=== PATIENT | male | born 1955 | race Caucasian/White ===

== ENCOUNTER 2017-08-18 18:16 | Emergency (ER) | payer BC ==
--- NOTE | 2017-08-18 18:22 | PDOC ---
Rapid Medical Evaluation Time Seen by Provider: 08/18/17 18:17 Medical Evaluation: Allergies Allergy/AdvReac Type Severity Reaction Status Date / Time Penicillins Allergy Verified 01/13/13 10:15 I have performed a brief in-person evaluation of this patient. The patient presents with a chief complaint of: sharp pain in right side of head radiating to right shoulder about 1 hour ago. The sharp pain has subsided. He now has a dull ache behind his right eye. No vision changes but feels pressure behind right eye. Patient took a baby aspirin on the way to the ER. Pertinent physical exam findings: none. No facial drooping. No slurred speech. No unilateral weakness. I have ordered the following: labs, EKG, head CT The patient will proceed to the ED for further evaluation. Discharge Disposition - Diagnosis Eye pressure - Referrals - Patient Instructions - Post Discharge Activity
[2017-08-18 18:30] VITALS: BP 158/99; PULSE 93; TEMP 97.8; BMI 31.4
--- NOTE | 2017-08-18 19:39 | PDOC ---
History of Present Illness - General Chief Complaint: Pain, Acute Stated Complaint: HEAD PAIN Time Seen by Provider: 08/18/17 18:17 History Source: Patient Exam Limitations: No Limitations - History of Present Illness Initial Comments: 08/18/17 19:34 62 YOM with h/o EtOH use (20-30 drinks/week), HLD, and prior cigarette smoking ( quit in 2004) who was drinking 2-3 beers when he had a fleeting sharp 9/10 non- radiating twinge of pain in the right anterior shoulder at 5:30pm today, followed by a gradual onset of pressure behind his right eye which has been improving since arrival to the ED. He notes having taken a full-dose ASA for the symptoms but no additional medications. He denies any vision change, numbness, tingling, focal weakness, difficulty walking or balancing, chest pain , SOB, or other symptoms. Past History - Past Medical History Allergies/Adverse Reactions: Allergies Allergy/AdvReac Type Severity Reaction Status Date / Time Penicillins Allergy Verified 01/13/13 10:15 Home Medications: Ambulatory Orders Cholecalciferol (Vitamin D3) [Vitamin D] 1,000 unit PO DAILY 01/13/13 Simvastatin [Zocor -] 40 mg PO DAILY 01/13/13 Anemia: No Asthma: No Cancer: No Cardiac Disorders: No CVA: No COPD: No CHF: No DVT: No Dementia: No Diabetes: No GI Disorders: Yes (DIVERTICULOSIS) Disorders: No HTN: No Hypercholesterolemia: Yes Liver Disease: No Thyroid Disease: No - Surgical History Abdominal Surgery: No Appendectomy: No Cardiac Surgery: No Cholecystectomy: No Lung Surgery: No Neurologic Surgery: No Orthopedic Surgery: No - Suicide/Smoking/Psychosocial Hx Smoking History: Former smoker Have you smoked in the past 12 months: No If you are a former smoker, when did you quit?: 2004 Information on smoking cessation initiated: No Hx Alcohol Use: No Drug/Substance Use Hx: No Substance Use Type: None Hx Substance Use Treatment: No Review of Systems - Review of Systems Able to Perform ROS?: Yes Constitutional: Yes: Diaphoresis (resolved). No: Chills, Fever, Unexplained wgt Loss HEENTM: Yes: Other (right eye pain). No: Recent change in vision, Nose Congestion, Throat Pain Respiratory: No: Cough, Shortness of Breath Cardiac (ROS): No: Chest Pain, Palpitations ABD/GI: No: Constipated, Diarrhea, Nausea, Vomiting : No: Burning, Dysuria Musculoskeletal: Yes: Other (right shoulder pain (resolved)). No: Back Pain, Neck Pain Integumentary: No: Bruising, Rash Neurological: No: Headache, Numbness, Tingling, Weakness, Dizziness Endocrine: No: Unexplained Weight Gain, Unexplained Weight Loss *Physical Exam - Vital Signs Last Vital Signs Temp Pulse Resp BP Pulse Ox 97.8 F 93 H 20 158/99 97 08/18/17 18:21 08/18/17 18:21 08/18/17 18:21 08/18/17 18:21 08/18/17 18:21 - Physical Exam General Appearance: Yes: Nourished, Appropriately Dressed, Other (well appearing nontoxic comfortable adult male answering questions appropriately). No: Apparent Distress HEENT: positive: EOMI, INEZ, Normal ENT Inspection, Normal Voice, Hearing Grossly Normal, Other (visual acuity grossly normal and equal bilaterally). negative: Scleral Icterus (R), Scleral Icterus (L), Nasal Congestion Neck: positive: Trachea midline, Supple. negative: Tender, Rigid Respiratory/Chest: positive: Lungs Clear, Normal Breath Sounds. negative: Chest Tender, Respiratory Distress, Crackles, Rhonchi, Stridor, Wheezing Cardiovascular: positive: Regular Rhythm, Regular Rate, S1, S2. negative: Edema , JVD, Murmur Gastrointestinal/Abdominal: positive: Normal Bowel Sounds, Soft. negative: Tender, Organomegaly, Pulsatile Mass, Guarding Musculoskeletal: positive: Normal Inspection. negative: Decreased Range of Motion, Vertebral Tenderness Extremity: positive: Normal Capillary Refill, Normal Inspection, Normal Range of Motion, Other (right shoulder nontender, normal ROM). negative: Tender, Cyanosis Integumentary: positive: Normal Color, Dry, Warm. negative: Erythema, Rash, Bruising Neurologic: positive: back tender fourdrinier II-XII NML intact, Fully Oriented, Alert, Normal Mood/ Affect, Normal Response, Motor Strength 5/5, Finger to Nose (normal). negative : EOM Palsy, Facial Droop, Numbness, Sensory Deficit, Confused, Disoriented Heart Score/ECG Review #1 08/18/17 22:14 SR rate 76 with left axis deviation, incomplete RBBB, LAFB, poor R wave progression, otherwise no ischemic changes. ED Treatment Course - LABORATORY CBC & Chemistry Diagram: 08/18/17 20:40 08/18/17 22:05 - RADIOLOGY Radiology Studies Ordered: Category Date Time Status CHEST PA & LAT [RAD] Stat Radiology 08/18/17 19:33 Ordered Medical Decision Making - Medical Decision Making 08/18/17 22:15 Adult male Pt p/w headache, no reported mechanism for injury, no new red flag symptoms (see HPI). FINNEY not worse on awakening in the AM, no B symptoms, trauma, fever, vision loss, syncope, n/t/w focally, sudden onset, etc. Initial Vital Signs Temp Pulse Resp BP Pulse Ox 97.8 F 93 H 20 158/99 97 08/18/17 18:21 08/18/17 18:21 08/18/17 18:21 08/18/17 18:21 08/18/17 18:21 Exam: well appearing, nontoxic, no distress, normal heart/lung/abdominal exams, normal neuro exam. DDX IBNLT primary FINNEY syndrome (tension/cluster/migraine/other incl. primary cough FINNEY, exertional FINNEY, postcoital FINNEY), trigeminal neuralgia, zoster, SAH ( chris. sudden onset), subdural or epidural hematoma (chris. after trauma), ruptured/ acutely expanded aneurysm, encephalitis, meningitis, glaucoma, atypical PNA, idiopathic intracranial hypertension (uncommon in males), GCA (uncommon <50 yo) , mass lesion, brain metastasis (chris. known CA patients and/or FINNEY with increasing severity/frequency), brain abscess (chris. immunocompromised patients) , DKA, CO poisoning, etc. W/U ordered: TX ordered: None (patient states pain improved). EKG: Reviewed; results as noted in ECG Review section. CXR: Head CT: Labs: Reassessment: Repeat VS: ADMIT The Pt is unsafe for discharge at this time. They require further hospital observation, workup, and treatment. Microblog sent to [facility] for admission. Spoke with [facility], in agreement Pt to be admitted to Decision to Admit order placed to covering attending DISCHARGE The Pt has gotten significant relief of symptoms with ED medications. Workup is not concerning for emergency-level pathology at this time. The Pt is appropriate for discharge home w/ close outpatient f/u. He is comfortable with this plan. He will take Motrin and/or Tylenol for pain. He will follow up with his regular doctor in the next 1-3 days. Specific return precautions are discussed and he will come back to the ER if necessary. *DC/Admit/Observation/Transfer Diagnosis at time of Disposition: Eye pressure Shoulder pain, right Qualifiers: Chronicity: acute Qualified Code(s): M25.511 - Pain in right shoulder - Discharge Dispostion Condition at time of disposition: Stable Decision to Admit order: No - Referrals Referrals: Diana Suárez MD [Primary Care Provider] - - Patient Instructions Additional Instructions: You were seen in the ER for pain/pressure behind your right eye which we believe is a headache. We did an exam, and we did not find any signs of an emergency. We did laboratory work, a chest X-ray, an electrocardiogram, and a head CT and did not find any abnormal findings which could explain your symptoms. Your pain improved with the medications we gave you here in the ER. After our assessment, we believe you are not having a medical emergency and you are safe to go home. Please take [id number] pain relievers like naproxen ( Aleve) or ibuprofen (Motrin) or Tylenol. Stay very well-hydrated, and try avoiding foods containing the chemicals tyramine and nitrates (such as chocolate , cheese, and processed meats) because these are associated with migraine-type headaches. Follow up with your regular doctor(s) in the next 1-3 days. Call their clinic [facility], tell them you were seen in the ER, and tell them you need an appointment. Please come back to the ER at any time, 24 hours a day, for any new or worsening symptoms, like worsening headache, new numbness/tingling, fainting, dizziness, new vision changes, high fever, or other symptoms. If you are having symptoms that make it unsafe to drive, please call 911. - Post Discharge Activity
--- NOTE | 2017-08-18 19:56 | PDOC ---
Attending Attestation - HPI HPI: 08/18/17 20:39 The patient is a 62 year old male with past medical history of hypercholesterolemia who presents to the emergency department with right shoulder pain for 3 hours. The patient states that he was drinking a few beers at approximately 17:30 when he began to experience sudden onset, fleeting right shoulder pain that he described as 9/10 in severity and radiating superiorly. The patient reports that his shoulder pain completely resolved but that he began to experience a painful pressure behind his right eye. He reports that his right eye pressure has been progressively improving after taking a dose of aspirin. The patient denies chest pain, shortness of breath, and dizziness. He denies vision changes, numbness, and weakness. - Physicial Exam PE: 08/18/17 20:40 GENERAL: Well-appearing, well-nourished. No apparent distress. HEENT: Normocephalic, atraumatic. PERRL, EOM intact. CARDIOVASCULAR: Normal S1, S2. Regular rate and rhythm. PULMONARY: Clear to auscultation bilaterally. ABDOMEN: Soft, non-distended, non-tender. EXTREMITIES: Normal ROM in all four extremities. No gross deformities. SKIN: Warm, dry. No rash NEUROLOGICAL: No focal neurological deficits. - Medical Decision Making 08/18/17 20:40 Documentation prepared by Zeeshan Johnston, acting as medical office supervisor for Garrison Meza DO. <Zeeshan Johnston - Last Filed: 08/18/17 20:39> - Resident Resident Name: Yesenia Salazar - ED Attending Attestation I have performed the following: I have examined & evaluated the patient, The case was reviewed & discussed with the resident, I agree w/resident's findings & plan, Exceptions are as noted - Medical Decision Making 08/18/17 23:38 Pt was treated and released <Garrison Meza - Last Filed: 08/18/17 23:38>
[2017-08-18 21:14] LABS: BASO % 1.3 % (0-2.0); EOS % 4.5 % (0-4.5); HEMATOCRIT 43.1 % (35.4-49); HEMOGLOBIN 14.5 GM/dL (11.7-16.9); LYMPH % 21.9 % (8-40); MCH 29.4 pg (25.7-33.7); MCHC 33.7 g/dl (32.0-35.9); MEAN CELL VOLUME 87.2 fl (80-96); MEAN PLT VOLUME 8.2 fl (7.5-11.1); MONO % 10.3 % (3.8-10.2); PLATELET COUNT 230 K/MM3 (134-434); RBC 4.94 M/mm3 (4.00-5.60); RDW 14.4 % (11.9-15.9); WHITE BLOOD COUNT 8.7 K/mm3 (4.0-10.0)
[2017-08-18 22:31] LABS: PLATELET ESTIMATE ADEQUATE
[2017-08-18 22:47] LABS: ALBUMIN 3.9 g/dl (3.4-5.0); ANION GAP 8 (8-16); BLOOD UREA NITROGEN 25 mg/dL (7-18); CALCIUM 8.2 mg/dL (8.5-10.1); CHLORIDE 108 mmol/L (98-107); CO2 24 mmol/L (21-32); CREATININE 1.1 mg/dL (0.7-1.3); GLUCOSE,RANDOM 83 mg/dL (74-106); POTASSIUM 3.8 mmol/L (3.5-5.1); SGOT/AST 60 U/L (15-37); SGPT/ALT 124 U/L (12-78); SODIUM 140 mmol/L (136-145)
[2017-08-18 22:50] LABS: ALK PHOS 76 U/L (45-117); BILIRUBIN,TOTAL 0.5 mg/dL (0.2-1.0)
--- NOTE | 2017-08-19 16:20 | EKG ---
Test Reason : Blood Pressure : / mmHG Vent. Rate : 076 BPM Atrial Rate : 076 BPM P-R Int : 140 ms QRS Dur : 104 ms QT Int : 396 ms P-R-T Axes : 035 -60 022 degrees QTc Int : 445 ms NORMAL SINUS RHYTHM WITH SINUS ARRHYTHMIA INCOMPLETE RIGHT BUNDLE BRANCH BLOCK LEFT ANTERIOR FASCICULAR BLOCK MODERATE VOLTAGE CRITERIA FOR LVH, MAY BE NORMAL VARIANT ABNORMAL ECG NO PREVIOUS ECGS AVAILABLE Confirmed by BARON SMALL, YANIV ([id number]) on 08/19/2017 4:19:48 PM Referred By: Confirmed By:YANIV DRAPER MD
== END 2017-08-19 00:16 | disposition home or self-care (01) ==
LOC: JER 18:16
DX: H57.8 Other specified disorders of eye and adnexa (principal); M25.511 Pain in right shoulder; E78.00 Pure hypercholesterolemia, unspecified; F10.10 Alcohol abuse, uncomplicated; Z87.891 Personal history of nicotine dependence
CPT/HCPCS: 36415; 70450-TC; 71046-TC-FY; 80053; 84484; 85025; 93005; 93010; 99281-25

== ENCOUNTER 2020-01-31 05:29 | Day surgery (SDC) | payer BC ==
[2020-01-30 12:27] VITALS: BMI 31.2
[2020-01-31 12:18] VITALS: TEMP 97.9
[2020-01-31 13:08] VITALS: BP 124/81; PULSE 64
== END 2020-01-31 13:16 | disposition home or self-care (01) ==
LOC: JASU-ENDO 05:29
PROVIDERS: ATTEND Internal Medicine Gastroenterology
PROC: 0DBH8ZX Excision of Cecum, Via Natural or Artificial Opening Endoscopic, Diagnostic (ICD-10-PCS; 2020-01-31)
PROC: 0DBN8ZX Excision of Sigmoid Colon, Via Natural or Artificial Opening Endoscopic, Diagnostic (ICD-10-PCS; 2020-01-31)
PROC: 0DB98ZX Excision of Duodenum, Via Natural or Artificial Opening Endoscopic, Diagnostic (ICD-10-PCS; 2020-01-31)
PROC: 0DB68ZX Excision of Stomach, Via Natural or Artificial Opening Endoscopic, Diagnostic (ICD-10-PCS; 2020-01-31)
PROC: 0DBP8ZX Excision of Rectum, Via Natural or Artificial Opening Endoscopic, Diagnostic (ICD-10-PCS; principal; 2020-01-31 11:00)
DX: Z12.11 Encounter for screening for malignant neoplasm of colon (principal); D12.0 Benign neoplasm of cecum; D12.5 Benign neoplasm of sigmoid colon; K62.1 Rectal polyp; K64.8 Other hemorrhoids; K57.30 Diverticulosis of large intestine without perforation or abscess without bleeding; K29.80 Duodenitis without bleeding; K29.50 Unspecified chronic gastritis without bleeding
CPT/HCPCS: 88305-TC; 88342-TC

== ENCOUNTER 2023-05-06 14:35 | Emergency (ER) | payer BC, OTHER ==
[2023-05-06 14:44] VITALS: BP 146/81; PULSE 68; RESP 19; TEMP 98; BMI 27.8
== END 2023-05-06 15:33 | disposition home or self-care (01) ==
LOC: JERFT 14:35
DX: R22.41 Localized swelling, mass and lump, right lower limb (principal); Z71.1 Person with feared health complaint in whom no diagnosis is made
CPT/HCPCS: 99282-25

== ENCOUNTER 2023-12-15 12:38 | Emergency (ER) | payer BC ==
[2023-12-15 13:09] VITALS: BP 164/87; PULSE 66; RESP 18; TEMP 97.8; BMI 27.8
[2023-12-15 15:21] LABS: BASO % 1.3 % (0-2.0); EOS % 5.9 % (0-4.5); HEMATOCRIT 41.9 % (35.4-49); LYMPH % 23.1 % (8-40); MCH 29.6 pg (25.7-33.7); MCHC 33.3 g/dl (32.0-35.9); MEAN CELL VOLUME 88.9 fl (80-96); MEAN PLT VOLUME 7.6 fl (7.5-11.1); MONO % 8.3 % (3.8-10.2); NEUT % 61.4 % (42.8-82.8); PLATELET COUNT 230 10^3/uL (134-434); RBC 4.72 M/mm3 (4.00-5.60); RDW 14.2 % (11.9-15.9); WHITE BLOOD COUNT 8.4 K/mm3 (4.0-10.0)
[2023-12-15 15:32] LABS: POTASSIUM 4.3 mmol/L (3.5-5.1)
[2023-12-15 15:35] LABS: ALBUMIN 4.1 g/dl (3.4-5.0); BLOOD UREA NITROGEN 20.2 mg/dL (7-18); CALCIUM 9.4 mg/dL (8.5-10.1)
[2023-12-15 15:38] LABS: CREATININE 0.9 mg/dL (0.55-1.3)
[2023-12-15 15:39] LABS: BILIRUBIN,TOTAL 0.5 mg/dL (0.2-1); TOT PROT 6.9 g/dl (6.4-8.2)
== END 2023-12-15 18:21 | disposition home or self-care (01) ==
LOC: JER 12:38
DX: R07.9 Chest pain, unspecified (principal)
CPT/HCPCS: 36415; 71046-TC-FY; 80053; 84484; 85025; 93005; 93010; 99285-25